=== PATIENT | female | born 1995 | race Caucasian/White ===

== ENCOUNTER 2018-07-26 15:56 | Emergency (ER) | payer OTHER ==
[2018-07-26 16:45] VITALS: BP 111/61; PULSE 77; TEMP 97.5; BMI 22.6
--- NOTE | 2018-07-26 17:20 | PDOC ---
History of Present Illness - General Chief Complaint: Headache Stated Complaint: MIRGANIES Time Seen by Provider: 07/26/18 16:58 - History of Present Illness Initial Comments: 07/26/18 17:19 When he 3-year-old female with a past medical history significant for migraines usually relieved with Excedrin Migraine medication presents for evaluation of a similar type headache unrelieved with migraine medication now with nausea and vomiting 8 episodes today. No systemic symptoms Past History - Past Medical History Allergies/Adverse Reactions: Allergies Allergy/AdvReac Type Severity Reaction Status Date / Time No Known Allergies Allergy Verified 07/26/18 16:45 Home Medications: Ambulatory Orders NK [No Known Home Medication] 07/26/18 COPD: No Other medical history: migranes - Suicide/Smoking/Psychosocial Hx Smoking History: Never smoked Information on smoking cessation initiated: No Hx Alcohol Use: No Drug/Substance Use Hx: No Review of Systems - Review of Systems Constitutional: No: Fever ABD/GI: Yes: Nausea, Vomiting Neurological: Yes: Headache *Physical Exam - Vital Signs Last Vital Signs Temp Pulse Resp BP Pulse Ox 97.5 F L 77 19 111/61 98 07/26/18 16:43 07/26/18 16:43 07/26/18 16:43 07/26/18 16:43 07/26/18 16:43 - Physical Exam Comments: 07/26/18 17:20 HEAD: NC/AT EYES: Conjuntiva clear EOMI PERRL Ears: Canals and TM's normal NOSE: No d/c THROAT: Moist mucous membrances, oral pharanx clear, uvula midline NECK: Supple without adenopathy CARDIAC: S1 S2 LUNGS: CTA Full and Equal breath sounds ABDOMEN: Soft NT ND MS: Full ROM in all joints without edema NEUROLOGIC: No gross sensory or motor deficits, NVID SKIN: Normal color and temperature no lesions or rashes Moderate Sedation - Procedure Monitoring Vital Signs: Procedure Monitoring Vital Signs Temperature 97.5 F L 07/26/18 16:43 Pulse Rate 77 07/26/18 16:43 Respiratory Rate 19 07/26/18 16:43 Blood Pressure 111/61 07/26/18 16:43 O2 Sat by Pulse Oximetry (%) 98 07/26/18 16:43 Medical Decision Making - Medical Decision Making 07/26/18 17:44 Patient refused CAT scan. I've explained to her the rationale for the CAT scan change in quality of migraine in character of headache worsening now causing vomiting is a reason for a CAT scan patient still refused. She would like medicine for her headache to be treated and discharged 07/26/18 17:49 I have very clearly discussed the possibility of subarachnoid hemorrhage and intracranial hemorrhage with the changing character of the headache which brings this patient to the emergency room today and an increase in symptoms now vomiting at home. They still would like to sign out AMA patient is here with her mother who understands patient expressed understanding as well *DC/Admit/Observation/Transfer Diagnosis at time of Disposition: Headache - Discharge Dispostion Disposition: AGAINST MEDICAL ADVICE Condition at time of disposition: Guarded - Referrals Referrals: Doug Benjamin MD [Staff Physician] - - Patient Instructions Printed Discharge Instructions: DI for Headache Additional Instructions: You're signing out AGAINST MEDICAL ADVICE. You have refused a CAT scan. As a result of this I am unable to rule out an intracranial bleed or hemorrhage. The CAT scan is warranted, you had a change in character and intensity of your headaches now causing vomiting which would necessitate a new workup. Again you have refused I've explained the situation to you when you elected to sign out AGAINST MEDICAL ADVICE. Return to the emergency room for worsening symptoms and follow-up with neurology as soon as possible. - Post Discharge Activity
[2018-07-26] MEDS ORDERED: METOCLOPRAMIDE HCL INJECTION 10 MG/2 ML VIAL IVPUSH ONE (17:36)
[2018-07-26] MEDS ORDERED: ACETAMINOPHEN 1000 MG/100 ML VIAL (NON FORMULARY) IVPB ONE (17:37)
[2018-07-26] MEDS ORDERED: SODIUM CHLORIDE 0.9% 500 ML INFUS.BAG IV ONE (17:37)
[2018-07-26] MEDS ORDERED: ACETAMINOPHEN INJECTION 100 ML IVPB ONE (17:45)
== END 2018-07-26 18:19 | disposition left against medical advice (07) ==
LOC: JERFT 15:56
PROC: 3E033NZ Introduction of Analgesics, Hypnotics, Sedatives into Peripheral Vein, Percutaneous Approach (ICD-10-PCS; principal; 2018-07-26)
DX: R51 Headache (principal)
CPT/HCPCS: 84703; 99281-25; J0131

== ENCOUNTER 2023-10-22 10:57 | Emergency (ER) | payer OTHER ==
[2023-10-22 11:21] VITALS: BP 134/78; PULSE 101; RESP 20; TEMP 98.2; BMI 22.4
[2023-10-22] MEDS ORDERED: ACETAMINOPHEN INJECTION 100 ML IVPB ONE (11:33)
[2023-10-22] MEDS ORDERED: ONDANSETRON 4 MG/2 ML VIAL ONE (11:33)
[2023-10-22 11:42] LABS: BASO % 0.3 % (0-2.0); EOS % 0.4 % (0-4.5); HEMATOCRIT 39.5 % (32.4-45.2); HEMOGLOBIN 12.9 GM/dL (10.7-15.3); LYMPH % 18.7 % (8-40); MCH 28.7 pg (25.7-33.7); MCHC 32.8 g/dl (32.0-36.0); MEAN CELL VOLUME 87.6 fl (80-96); MEAN PLT VOLUME 7.1 fl (7.5-11.1); NEUT % 75.6 % (42.8-82.8); PLATELET COUNT 445 10^3/uL (134-434); RBC 4.51 M/mm3 (3.60-5.2); RDW 15.2 % (11.6-15.6); WHITE BLOOD COUNT 9.2 K/mm3 (4.0-10.0)
[2023-10-22] MEDS: SODIUM CHLORIDE 1,000 ML IV STA (11:49)
[2023-10-22] MEDS: ONDANSETRON 4 MG/2 ML VIAL IVPUSH ONE (11:50)
[2023-10-22] MEDS: ACETAMINOPHEN 1000 MG/100 ML BAG IVPB ONE (11:50)
[2023-10-22 11:57] LABS: EPI CELLS >36 /uL (0-25.1); HYALINE CASTS 1 /uL (0-3.1); URINE APPEARANCE CLOUDY; URINE BACTERIA 459 /uL (0-1359); URINE BILIRUBIN NEGATIVE (NEGATIVE); URINE COLOR YELLOW; URINE GLUCOSE (UA) NEGATIVE (NEGATIVE); URINE KETONE NEGATIVE (NEGATIVE); URINE LEUK ESTERASE 3+ (NEGATIVE); URINE NITRITE NEGATIVE (NEGATIVE); URINE PROTEIN NEGATIVE (NEGATIVE); URINE RBC 27 /uL (0-23.9); URINE UROBILINOGEN 0.2 mg/dL (0.2-1.0); URINE WBC 201 /uL (0-25.8)
[2023-10-22 11:58] LABS: POTASSIUM 4.1 mmol/L (3.5-5.1)
[2023-10-22 11:58] LABS: HCG,QUALITATIVE URINE Negative
[2023-10-22 12:00] LABS: ALBUMIN 4.6 g/dl (3.4-5.0); BLOOD UREA NITROGEN 10.7 mg/dL (7-18); CALCIUM 9.7 mg/dL (8.5-10.1)
[2023-10-22 12:04] LABS: CREATININE 0.8 mg/dL (0.55-1.3)
[2023-10-22 12:05] LABS: BILIRUBIN,TOTAL 0.3 mg/dL (0.2-1); TOT PROT 8.5 g/dl (6.4-8.2)
[2023-10-22] MEDS ORDERED: NITROFURANTOIN MACROCRYSTAL 50 MG CAPSULE (FP) ONE (15:02)
[2023-10-22] MEDS: NITROFURANTOIN MONOHYD/M-CRYST 100 MG CAPSULE PO ONE (15:29)
== END 2023-10-22 15:26 | disposition home or self-care (01) ==
LOC: JER 10:57
PROC: 3E033NZ Introduction of Analgesics, Hypnotics, Sedatives into Peripheral Vein, Percutaneous Approach (ICD-10-PCS; principal; 2023-10-22)
PROC: 3E033GC Introduction of Other Therapeutic Substance into Peripheral Vein, Percutaneous Approach (ICD-10-PCS; 2023-10-22)
PROC: 3E0337Z Introduction of Electrolytic and Water Balance Substance into Peripheral Vein, Percutaneous Approach (ICD-10-PCS; 2023-10-22)
DX: N83.202 Unspecified ovarian cyst, left side (principal); N39.0 Urinary tract infection, site not specified; R10.32 Left lower quadrant pain; R11.0 Nausea
CPT/HCPCS: 36415; 76830-TC; 80053; 81003; 84703; 85025; 87086; 99284-25; J0131